=== PATIENT | male | born 1985 | race Hispanic/Latino ===

== ENCOUNTER 2023-05-22 17:14 | Emergency (ER) | payer OTHER ==
[~2023-05-22] VITALS: Ht 160 cm; Wt 102.1 kg
[2023-05-22] MEDS ORDERED: TETANUS/DIPHTHERIA TOXOID [ADULT] 0.5 ML VIAL IM ONE (18:00)
[2023-05-22] MEDS ORDERED: CEPHALEXIN 500 MG CAPSULE PO ONE (18:00)
[2023-05-22] MEDS ORDERED: IBUPROFEN 600 MG TABLET PO ONE (18:00)
[2023-05-22] MEDS ORDERED: IBUP-2070 PO (19:22)
[2023-05-22] MEDS ORDERED: AMOX1TAB16 PO (19:22)
[2023-05-22 19:40] VITALS: BP 146/86; PULSE 75; RESP 18; O2SAT 99
== END 2023-05-22 19:43 | disposition home or self-care (01) ==
LOC: EDH 17:14
DX: S61.212A Laceration without foreign body of right middle finger without damage to nail, initial encounter (principal); Z79.899 Other long term (current) drug therapy; W26.0XXA Contact with knife, initial encounter; Y93.89 Activity, other specified; Y92.89 Other specified places as the place of occurrence of the external cause; Y99.8 Other external cause status
CPT/HCPCS: 12001; 73130; 90471; 90714

== ENCOUNTER 2023-12-04 21:21 | Emergency (ER) | payer OTHER ==
[~2023-12-04] VITALS: Ht 160 cm; Wt 95.3 kg
[~2023-12-04 21:21] MED LIST: AMOX1TAB16 PO; IBUP-2070 PO
[2023-12-04] MEDS: HYDROCODONE/ACETAMINOPHEN 5/325 MG TAB PO ONE (23:34)
[2023-12-04] MEDS: KETOROLAC 60 MG VIAL (30MG/ML) IM ONE (23:34)
[2023-12-04] MEDS ORDERED: ACET-2079 PO (23:54)
[2023-12-04] MEDS ORDERED: NAPR-1180 PO (23:54)
[2023-12-05 00:20] VITALS: BP 128/85; PULSE 83; RESP 19; O2SAT 99
== END 2023-12-05 00:20 | disposition home or self-care (01) ==
LOC: EDH 21:21
DX: S86.002A Unspecified injury of left Achilles tendon, initial encounter (principal); M25.572 Pain in left ankle and joints of left foot; X58.XXXA Exposure to other specified factors, initial encounter; Y93.89 Activity, other specified; Y92.89 Other specified places as the place of occurrence of the external cause; Y99.8 Other external cause status
CPT/HCPCS: 99283; 29515; 73610; 96372; J1885